=== PATIENT | female | born 1985 | race African-American/Black ===

== ENCOUNTER → 2016-12-03 | Outpatient (CLI) | payer BC ==
--- NOTE | 2016-12-03 17:25 | RAD ---
Left lower extremity venous ultrasound, 12/03/2016 : History: Left leg swelling and pain Duplex evaluation including grayscale, color flow and spectral Doppler analysis was performed. The femoral and popliteal veins show no filling defects to suggest DVT. The visualized calf veins are unremarkable. IMPRESSION: There is no sonographic evidence of deep vein thrombosis in the left lower extremity
== END | disposition home or self-care (01) ==
LOC: US 16:06
PROVIDERS: ATTEND Nurse Practitioner Family
DX: M79.662 Pain in left lower leg (principal)
CPT/HCPCS: 93971

== ENCOUNTER 2020-12-30 18:02 | Emergency (ER) | payer BC ==
[~2020-12-30] VITALS: Ht 165.1 cm; Wt 82.5 kg
[2020-12-30 18:19] VITALS: BP 121/80
[2020-12-30] MEDS: MORPHINE SULFATE 4 MG/ML DISP.SYRIN. IM ONE (19:09)
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
--- NOTE | 2020-12-30 19:41 | RAD ---
CT scan of the cervical spine without contrast 12/30/2020 Clinical history: Fall with neck pain Technique: Unenhanced, contiguous, 0.625 mm axial sections were obtained through the cervical spine. 2 mm reconstructed axial and 2 mm coronal and sagittal reconstructed images were obtained. One or more of the following individualized dose reduction techniques were utilized for this study: 1. Automated exposure control. 2. Adjustment of the mA and/or kV according to patient size. 3. Use of iterative reconstruction technique. Findings: Sagittal coronal reconstructed images demonstrate mild straightening of the normal cervical lordosis. No fracture or subluxation cervical vertebrae is seen. No area of significant central spinal canal or neural foraminal stenosis is seen. Impression: No fracture or subluxation of the cervical vertebra is identified. Electronically signed by: Lj Gibbons MD (12/30/2020 7:38 PM) [id number]
--- NOTE | 2020-12-30 20:24 | RAD ---
Study: XR SHOULDER_RIGHT 2+ VIEWS Indication: Fall. Comparison: None. Findings: No acute fracture. No malalignment across the glenohumeral or acromioclavicular joints. Mild arthrosi s at the AC and glenohumeral joints. The medial aspect of the humeral head appears somewhat flattened on the internal rotation view but this is less well apparent on the external rotation view. If real this would be a chronic finding. Small chronic focus of mineralization projecting between the acromio n and humeral head. The partially assessed ribs are grossly intact. Impression: No acute fracture or traumatic malalignment. Mild shoulder girdle arthrosis. Irregular configuration of the medial humeral head on the AP internal rotation view. Correlate for a history of remote trauma . Electronically signed by: ARLEN DUARTE MD (12/30/2020 8:22 PM) [facility]IMMY
--- NOTE | 2020-12-30 20:25 | RAD ---
Study: XR FOOT_RIGHT 3 VIEWS Indication: Fall. Comparison: None. Findings: No acute fracture or traumatic malalignment. Bipartite medial hallux sesamoid. No retained radiopaque foreign body. Impression: No acute fracture or traumatic malalignment. Electronically signed by: ARLEN DUARTE MD (12/30/2020 8:23 PM) [facility]US[facility]IMMY
[2020-12-30] MEDS ORDERED: HYDR-1179 PO (20:45)
== END 2020-12-30 21:00 | disposition home or self-care (01) ==
LOC: ER 18:02
DX: S40.011A Contusion of right shoulder, initial encounter (principal); M79.674 Pain in right toe(s); Z86.73 Personal history of transient ischemic attack (TIA), and cerebral infarction without residual deficits; V00.141A Fall from scooter (nonmotorized), initial encounter; Y93.55 Activity, bike riding; Y92.89 Other specified places as the place of occurrence of the external cause; Y99.8 Other external cause status
CPT/HCPCS: 72125; 73030; 73630; 96372; 99284; J2270